=== PATIENT | male | born 1975 | race Caucasian/White ===

== ENCOUNTER 2017-12-31 11:19 | Emergency (ER) | payer OTHER, MEDICAID ==
--- NOTE | 2017-12-31 12:25 | EDPHY ---
H & P Stated Complaint: bladder infection Time Seen by Provider: 12/31/17 11:51 HPI/ROS: CHIEF COMPLAINT: Continued urinary abnormality, flank pain HISTORY OF PRESENT ILLNESS: 42-year-old male history of partial quadriplegia, partially wheelchair bound, secondary to spontaneous hemorrhage in 2010, history of morning self catheterization, complaining of continued urinary abnormality since early November. He is currently on his 3rd course of antibiotics noting that he had resistance to ciprofloxacin to other antibiotics prescribed by his primary care provider in [place]. He sleeps with condom catheter and leave the common catheter in place during the daytime however will self catheterize in the morning. He notes that he has debris in his urine and is now complaining of mild flank pain. Is been feeling intermittent fever and chills. 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 Appears to be in no acute distress. 2) HEAD: Normocephalic, atraumatic 3) HEENT: Pupils equal, round, reactive to light bilaterally. Sclera anicteric. 4) NECK: Full range of motion, no meningeal signs. 5) LUNGS: Clear auscultation bilaterally, no wheezes, no rhonchi, no retractions. 6) HEART: Regular rate and rhythm, no murmur, no heave, no gallop. 7) ABDOMEN: No guarding, no rebound, no focal tenderness, negative McBurney's, negative Lord's, negative Rovsing's, negative peritoneal sign, 8) MUSCULOSKELETAL: Moving all extremities, no focal areas of tenderness, no obvious trauma. No peripheral edema or discoloration. 9) BACK: No CVA tenderness, no midline vertebral tenderness, no fluctuance, no step-off, no obvious trauma, no visual or palpable abnormality. 10) SKIN: No rash, no petechiae. 11) Psychiatric: Patient is oriented X 3, there is no agitation. 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, can ambulate with walker, frequent UTI 's , self-cath/condom cath - Social History Smoking Status: Never smoked Constitutional: Initial Vital Signs Temperature (C) 36.5 C 12/31/17 11:51 Heart Rate 72 12/31/17 11:51 Respiratory Rate 18 12/31/17 11:51 Blood Pressure 133/82 H 12/31/17 11:51 O2 Sat (%) 97 12/31/17 11:51 O2 Delivery Mode Room Air Allergies/Adverse Reactions: latex Allergy (Verified 12/31/17 11:56) metronidazole [From Flagyl] Allergy (Verified 12/31/17 11:56) Home Medications: Medication Instructions Recorded Baclofen 12/31/17 Dantrolene Sodium 12/31/17 Pradaxa 12/31/17 Tamsulosin HCl 12/31/17 Medical Decision Making - Diagnostics Imaging Results: Imaging Impressions Abdomen/Pelvis Ultrasound 12/31/17 12:21 Impression: 1. No hydronephrosis. 2. No definite shadowing renal calculi. Findings and recommendations discussed with Emergency Department physician, Owen Hewitt at 13:22 hour, 12/31/2017. Final report concurs with initial preliminary interpretation. Abdomen/Pelvis CT 12/31/17 12:32 Impression: 1. No nephrolithiasis or hydronephrosis. 2. 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 3. No bowel obstruction or pneumoperitoneum. Attention: This CT examination is specifically designed to evaluate patients who are clinically suspected of having acute obstructive uropathy. This examination does not use radiographic contrast, and as such, provides only a limited evaluation of the abdomen, pelvis and retroperitoneum. If there is further clinical suspicion for pathological conditions other than obstructive uropathy, a complete CT evaluation of the abdomen and pelvis utilizing intravenous, oral, and rectal contrast should be considered. Findings and recommendations discussed with Emergency Department physician, Owen Hewitt at 1330 hour, 12/31/2017. Final report concurs with initial preliminary interpretation. Images reviewed myself ED Course/Re-evaluation: 12:22 p.m.: Discussed the case with secondary supervising physician Dr. Ge Elder in the ER with whom I discussed case Will obtain urinalysis, blood work, renal ultrasound and re-evaluate. 2:24 p.m.: Patient was re-evaluated with serial examinations.. Discussed imaging findings the patient also Dr. Ge Elder. Patient's only urinalysis abnormality is 5-10 WBCs. He is currently on antibiotics, name unknown by patient. I recommend he continue this. Urine is cultured. Doubt urosepsis. We discussed his IVC filter findings. At this time I do not think that further diagnostic studies are indicated from the emergency department. Plan will be discharge. He feels comfortable with this plan. All questions and concerns addressed by myself. - Data Points Laboratory Results: Laboratory Results 12/31/17 12:13 12/31/17 12:13 12/31/17 12/31/17 12/31/17 12:13 12:13 12:08 WBC 8.49 10^3/uL 10^3/uL (3.80-9.50) RBC 5.38 10^6/uL 10^6/uL (4.40-6.38) Hgb 15.9 g/dL g/dL (13.7-17.5) Hct 47.2 % % (40.0-51.0) MCV 87.7 fL fL (81.5-99.8) MCH 29.6 pg pg (27.9-34.1) MCHC 33.7 g/dL g/dL (32.4-36.7) RDW 12.5 % % (11.5-15.2) Plt Count 224 10^3/uL 10^3/uL (150-400) MPV 9.3 fL fL (8.7-11.7) Neut % (Auto) 74.1 % % (39.3-74.2) Lymph % (Auto) 15.5 % % (15.0-45.0) [place] % (Auto) 8.8 % % (4.5-13.0) Eos % (Auto) 0.7 % % (0.6-7.6) Baso % (Auto) 0.5 % % (0.3-1.7) Nucleat RBC Rel Count 0.0 % % (0.0-0.2) Absolute Neuts (auto) 6.29 10^3/uL 10^3/uL (1.70-6.50) Absolute Lymphs (auto) 1.32 10^3/uL 10^3/uL (1.00-3.00) Absolute Monos (auto) 0.75 10^3/uL 10^3/uL (0.30-0.80) Absolute Eos (auto) 0.06 10^3/uL 10^3/uL (0.03-0.40) Absolute Basos (auto) 0.04 10^3/uL 10^3/uL (0.02-0.10) Absolute Nucleated RBC 0.00 10^3/uL 10^3/uL (0-0.01) Immature Gran % 0.4 % % (0.0-1.1) Immature Gran # 0.03 10^3/uL 10^3/uL (0.00-0.10) Sodium 142 mEq/L mEq/L (135-145) Potassium 4.6 mEq/L mEq/L (3.5-5.2) Chloride 106 mEq/L mEq/L (97-110) Carbon Dioxide 24 mEq/l mEq/l (22-31) Anion Gap 12 mEq/L mEq/L (8-16) BUN 12 mg/dL mg/dL (7-23) Creatinine 1.1 mg/dL mg/dL (0.7-1.3) Estimated GFR > 60 Glucose 90 mg/dL mg/dL (70-100) Calcium 9.8 mg/dL mg/dL (8.5-10.4) Urine Color PALE YELLOW Urine Appearance CLEAR Urine pH 6.0 (5.0-7.5) Ur Specific [place] 1.005 (1.002-1.030) Urine Protein NEGATIVE (NEGATIVE) Urine Ketones NEGATIVE (NEGATIVE) Urine Blood NEGATIVE (NEGATIVE) Urine Nitrate NEGATIVE (NEGATIVE) Urine Bilirubin NEGATIVE (NEGATIVE) Urine Urobilinogen NEGATIVE EU EU (0.2-1.0) Ur Leukocyte Esterase NEGATIVE (NEGATIVE) Urine RBC 1-3 /hpf /hpf (0-3) Urine WBC 5-10 /hpf H /hpf (0-3) Ur Epithelial Cells TRACE /lpf /lpf (NONE-1+) Urine Mucus TRACE /lpf /lpf (NONE-1+) Urine Glucose NEGATIVE (NEGATIVE) Departure - Departure Disposition: Home, Routine, Self-Care Clinical Impression: Urinary tract infection Qualifiers: Urinary tract infection type: acute cystitis Hematuria presence: without hematuria Qualified Code(s): N30.00 - Acute cystitis without hematuria Condition: Good Instructions: Urinary Tract Infection in Men (ED) Additional Instructions: Return to the ER if you develop fevers, chills, nausea, vomiting or any other symptoms that concern you. Keep taking your antibiotics as directed. Referrals: ELAN DIXON [Other] - 1 day without fail
[2017-12-31 12:30] LABS: PLATELET COUNT 224 10^3/uL (150-400)
[2017-12-31 14:17] VITALS: PULSE 70; RESP 16
[2017-12-31 15:15] VITALS: BP 123/87; TEMP 96.8; O2SAT 94
== END 2017-12-31 15:15 | disposition home or self-care (01) ==
DX: N30.00 Acute cystitis without hematuria (principal); Z91.040 Latex allergy status